=== PATIENT | female | born 2000 | race Caucasian/White ===

== ENCOUNTER 2021-09-04 11:49 | Inpatient (IN) | payer BC ==
--- NOTE | 2021-09-04 12:54 | PCM.LDHP ---
L&D History of Present Illness - General Date of Service: 09/04/21 Admit Problem/Dx: Patient Status Order with Admit Dx/Problem 09/04/21 12:07 Patient Status [ADT] Routine Admission Diagnosis/Problem Admission Diagnosis/Problem Source of Information: Patient History Limitations: Reports: No Limitations - History of Present Illness Introduction:: 20 yo at 37+3 weeks gestation presented to L&D with SROM at about 1130 this am with clear fluid. She had been having contractions starting about 10:00 am that were mild but they are feeling stronger since AROM. Amnisure today is positive. GBS is negative. Blood type A positive. labs were negative RPR, neg HBsAg, Neg HIV and neg HCV. Good immunity to rubella. GC/Ct negative. She did Prequel that was negative for Trisomies and XX sex chromosomes. 1 hour glucola was abnormal but 3 hour test was wnl. She has had Influenza and Tdap vaccinations with this , but has declined COVID vaccine. NST on admission shows moderate variability and accelerations, no decelerations. Bedside ultrasound by Dr. Moore, OB on car supervisor, confirmed baby is still in Breech presentation with head to maternal right. There was discrepancy with her dates and 20 week ultrasound off by about 2 weeks from LMP. She did see Dr. Aj who did detailed ultrasound and felt that baby was consistent with the 20 week ultrasound and set EDC at 09/23/21. She was supposed to have growth ultrasounds but did not come for 2 months and then I saw her for the first time on 08/26/21 and BPP at that time was 8/8 but breech presentation, RAMESH 9.4 cm, EFW 5lb 4oz, 9%. Repeat BPP on 09/02/21 was 8/8, breech, RAMESH 9.3 and EFW 5 lb 7oz (6%). We were planning on scheduled primary on 09/20/[address] Paniagua as primary surgeon due to breech and not wanting to attempt ECV. On exam today, cervix 1 cm dilated, 90% effaced, station -1. contractions about every 4 minutes and are mild. Clear fluid draining. - Related Data Allergies/Adverse Reactions: Allergies Allergy/AdvReac Type Severity Reaction Status Date / Time No Known Allergies Allergy Verified 07/18/21 11:59 Home Medications: Home Meds No122/Iron/Folic Acid [ Multi Tablet] 1 each PO DAILY 07/18/21 [History] Past Medical History Psychiatric History: Reports: Anxiety, Depression H&P Review of Systems - Review of Systems: Review Of Systems: See Below General: Reports: No Symptoms HEENT: Reports: No Symptoms Pulmonary: Reports: No Symptoms Cardiovascular: Reports: No Symptoms Gastrointestinal: Reports: No Symptoms Genitourinary: Reports: No Symptoms Musculoskeletal: Reports: No Symptoms Skin: Reports: No Symptoms Psychiatric: Reports: No Symptoms Neurological: Reports: No Symptoms Hematologic/Lymphatic: Reports: No Symptoms Immunologic: Reports: No Symptoms L&D Exam - Exam Exam: See Below - Vital Signs Weight: 58.967 kg - OB Specific Contraction Duration (sec): 60 secs Contraction Frequency (min): 4 min Contraction Intensity: Mild Movement: Active Heart Tones: Present Heart Tones per Min: 130 Heart Rate (FHR) Variability: Moderate (6-25 bpm) Presentation: Breech Estimated Weight: 5 lb 5 oz - Sofia Score Sofia Score Cervix Position: Anterior Sofia Score Consistency: Soft Sofia Score Effacement: >80% Sofia Score Dilation: 1-2 cm Sofia Score Infant's Station: -1 ,0 Sofia Score Total: 10 - Exam General: Alert, Oriented, Mild Distress HEENT: Pupils Equal Neck: Supple Lungs: Normal Respiratory Effort Cardiovascular: Regular Rate, Regular Rhythm GI/Abdominal Exam: Normal Bowel Sounds Rectal Exam: Deferred Genitourinary: Normal external exam, Enlarged uterus, Other (Leaking clear fluid) Back Exam: Normal Inspection Extremities: No Pedal Edema Skin: Warm, Dry, Intact Psychiatric: Alert, Normal Affect, Normal Mood - Patient Data Lab Results Last 24 hrs: Laboratory Results - last 24 hr 09/04/21 Range/Units 12:00 Membrane Rupture Positive H - Problem List (1) 37 weeks gestation of SNOMED Code(s): 22896915 ICD Code: Z3A.37 - 37 WEEKS GESTATION OF Status: Acute Current Visit: Yes (2) SROM (spontaneous rupture of membranes) SNOMED Code(s): 282420117 ICD Code: [id number] - Status: Acute Current Visit: Yes (3) Breech presentation of fetus SNOMED Code(s): 9804305 ICD Code: O32.1XX0 - MATERNAL CARE FOR BREECH PRESENTATION, UNSP Status: Acute Current Visit: Yes (4) Small for gestational age fetus SNOMED Code(s): 375852902 ICD Code: [id number] - Status: Acute Current Visit: Yes Problem List Initiated/Reviewed/Updated: Yes Orders Last 24hrs: Active Orders 24 hr Category Date Time Status Patient Status [ADT] Routine ADT 09/04/21 12:07 Active Non Stress Test [RC] PER UNIT ROUTINE Care 09/04/21 12:07 Active Vital Signs [RC] PER UNIT ROUTINE Care 09/04/21 12:07 Active Nothing Per Oral Diet [DIET] Diet 09/04/21 Lunch Active CORONAVIRUS COVID-19 [place] [MOLEC] Stat Lab 09/04/21 12:46 Ordered Resuscitation Status Routine Resus Stat 09/04/21 12:06 Ordered Assessment/Plan Comment:: 20 yo at 37+3 weeks with SROM and breech presentation confirmed with bedside ultrasound today. She is GBS negative, but SGA baby and some discrepancy of dates and ultrasound in early . She did see Dr. Aj who determined EDC 09/23/21 based on her ultrasound. NST is reactive. Amnisure positive. She is having contractions that are still mild. Cervix 1 cm dilated, 80% effaced. Plan: Urgent Primary section today due to breech presentation. Dr. Moore is on car supervisor so will be primary surgeon and I will be assisting. Will have Dr. Avery present for pediatrics during the surgery and then I will assume care of baby for the remainder of the hospital stay.
[2021-09-04] MEDS ORDERED: Citric Acid/Sodium Citrate Solution 30 ML Cup PO ONE (12:57)
[2021-09-04] MEDS ORDERED: ceFAZolin 2 GM in Premix Bag 1 BAG IV ONE (12:57)
[2021-09-04] MEDS ORDERED: Metoclopramide 10 MG/2 ML SDV IVPUSH ONE (12:57)
[2021-09-04] MEDS ORDERED: Azithromycin 500 MG in Sodium Chloride 0.9% 250 ML IV ONE (12:59)
[2021-09-04] MEDS ORDERED: Lactated Ringers 1,000 ML IV SCH (13:00)
--- NOTE | 2021-09-04 13:19 | PCM.OPNOTE ---
- General Post-Op/Procedure Note Date of Surgery/Procedure: 09/04/21 Operative Procedure(s): Primary low transverse Findings: Normal appearance of the uterus and ovaries. Baby girl in breech presentation. Weight of 6 lbs 0 oz, APGARS of 9 & 9 Pre Op Diagnosis: 37 3/7 wks. Breech presentation. SROM Post-Op Diagnosis: Same Anesthesia Technique: Spinal Primary Surgeon: Kelly Moore Secondary Surgeon: Nila Whitten Anesthesia Provider: Ever Nicholson Reason Expanded Duty Dental Assistant Was Necessary: Speed / safety of procedure Pathology: Cord blood collected. Placenta discarded Fluid Replacement, Intraop: 1,900 Output, Urine Amount: 100 EBL in mLs: 400 Complications: None Condition: Good Free Text/Narrative:: The risks, benefits, indications, potential complications, and alternatives were explained to the patient and informed consent obtained. After induction of anesthesia, the patient was placed in a supine position and then draped and prepped in the usual sterile manner. A Pfannenstiel incision was made and carried down through the subcutaneous tissue to the fascia. Fascial incision was made and extended transversely. The fascia was from the underlying rectus tissue superiorly and inferiorly. The peritoneum was identified and entered. Peritoneal incision was extended longitudinally. The utero-vesical peritoneal reflection was incised transversely and the bladder flap was bluntly freed from the lower uterine segment. A low transverse uterine incision was made sharply with a scalpel and extended bluntly in a cephalocaudad direction. A baby girl was delivered from a breech presentation with APGARS as above. After the umbilical cord was clamped and cut cord blood was obtained for evaluation. The placenta was removed intact and appeared normal. The uterus was exteriorized and cleared of clots. The uterine outline, tubes and ovaries appeared normal. The uterine incision was closed with running locked sutures of 0 Monocryl. Hemostasis was obtained with a second imbricating layer of 0 Monocryl. The uterus was then placed back into the abdomen. The infracolic gutters were cleared of blood clots. The fascia was then reapproximated with running sutures of 0 Monocryl. The subcutaneous tissue was irrigated with sterile warm normal saline, hemostasis obtained with cautery. This layer was closed with a running 0 Monocryl. The skin was reapproximated with running subcuticular 4-0 Monocryl sutures. Incision was sealed with Dermabond. Instrument, sponge, and needle counts were correct prior the abdominal closure and at the conclusion of the case.
[2021-09-04] MEDS ORDERED: Ondansetron 4 MG/2 ML SDV ONE (13:42)
[2021-09-04] MEDS ORDERED: fentaNYL 100 MCG/2 ML SDV ONE (13:42)
[2021-09-04] MEDS ORDERED: Morphine PF 10 MG/10 ML SDV ONE (13:42)
[2021-09-04] MEDS ORDERED: Ketorolac 30 MG/ML SDV ONE (13:42)
[2021-09-04] MEDS ORDERED: Oxytocin 10 Units/1 ML SDV ONE ×2 (13:42→14:34)
[2021-09-04] MEDS ORDERED: ceFAZolin 1 GM Vial ONE (13:45)
[2021-09-04] MEDS ORDERED: Lactated Ringers 1,000 ML ONE ×2 (13:58→14:34)
--- NOTE | 2021-09-04 14:23 | PCM.PREANE ---
Preanesthetic Assessment - Procedure Proposed Procedure: primary Cesrean section - Anesthesia/Transfusion/Family Hx Anesthesia History: No Prior Anesthesia Transfusion History: No Prior Transfusion(s) - Review of Systems General: No Symptoms Pulmonary: No Symptoms Cardiovascular: No Symptoms Gastrointestinal: No Symptoms Neurological: No Symptoms, Other (Scoliosis) Other: Reports: None - Physical Assessment NPO Status Date: 09/04/21 NPO Status Time: 10:00 Vital Signs: Last Vital Signs Temp 98.4 F 09/04/21 11:50 Pulse 72 09/04/21 11:50 Resp 14 09/04/21 11:50 BP 113/92 H 09/04/21 11:50 Pulse Ox 100 09/04/21 11:50 Height: 1.57 m Weight: 58.967 kg ASA Class: 2 Mental Status: Alert & Oriented x3 Airway Class: Mallampati = 1 Dentition: Reports: Normal Dentition Thyro-Mental Finger Breadths: 3 Mouth Opening Finger Breadths: 3 ROM/Head Extension: Full Lungs: Clear to Auscultation, Normal Respiratory Effort Cardiovascular: Regular Rate, Regular Rhythm - Lab Values: Laboratory Last Values WBC 6.33 K/mm3 (3.98-10.04) 09/04/21 13:08 RBC 4.62 M/mm3 (3.98-5.22) 09/04/21 13:08 Hgb 11.5 gm/dl (11.2-15.7) 09/04/21 13:08 Hct 36.5 % (34.1-44.9) 09/04/21 13:08 MCV 79.0 fl (79.4-94.8) L D 09/04/21 13:08 MCH 24.9 pg (25.6-32.2) L 09/04/21 13:08 MCHC 31.5 g/dl (32.2-35.5) L 09/04/21 13:08 RDW Std Deviation 41.2 fL (36.4-46.3) 09/04/21 13:08 Plt Count 273 K/mm3 (182-369) 09/04/21 13:08 MPV 11.6 fl (9.4-12.3) 09/04/21 13:08 Membrane Rupture Positive H 09/04/21 12:00 SARS-CoV-2 RNA ([facility]) Negative (NEGATIVE) 09/04/21 12:14 Blood Type A POSITIVE 09/04/21 13:08 Gel Antibody Screen Negative 09/04/21 13:08 - Allergies Allergies/Adverse Reactions: Allergies Allergy/AdvReac Type Severity Reaction Status Date / Time No Known Allergies Allergy Verified 07/18/21 11:59 - Acknowledgements Anesthesia Type Planned: Spinal Pt an Appropriate Candidate for the Planned Anesthesia: Yes Alternatives and Risks of Anesthesia Discussed w Pt/Guardian: Yes Pt/Guardian Understands and Agrees with Anesthesia Plan: Yes PreAnesthesia Questionnaire - Past Health History Medical/Surgical History: Denies Medical/Surgical History VERIFIER History: Reports: Psychiatric History: Reports: Anxiety, Depression - SUBSTANCE USE Tobacco Use Within Last Twelve Months: Vaping Second Hand Smoke Exposure: No Recreational Drug Use History: No - HOME MEDS Home Medications: Home Meds No122/Iron/Folic Acid [ Multi Tablet] 1 each PO DAILY 07/18/21 [History] - CURRENT (IN HOUSE) MEDS Current Meds: Current Medications Lactated Ringer's (Ringers, Lactated) 1,000 mls @ 125 mls/hr IV ASDIRECTED [place] Last Admin: 09/04/21 13:06 Dose: 500 mls/hr Documented by: Sodium Chloride (Sodium Chloride 0.9% 10 Ml Syringe) 10 ml FLUSH 0900,2100 [facility] Discontinued Medications Cefazolin Sodium (Cefazolin 1 Gm Vial) Confirm Administered Dose 2 gm .ROUTE .STK-MED ONE Stop: 09/04/21 13:46 Citric Acid/Sodium Citrate (Citric Acid/Sodium Citrate Solution 30 Ml Cup) 30 ml PO ONETIME ONE Stop: 09/04/21 12:58 Fentanyl (Fentanyl 100 Mcg/2 Ml Sdv) Confirm Administered Dose 100 mcg .ROUTE .STK-MED ONE Stop: 09/04/21 13:43 Cefazolin Sodium/Dextrose 2 gm (/ Premix) 50 mls @ 100 mls/hr IV ONETIME ONE Stop: 09/04/21 13:26 Azithromycin 500 mg/ Sodium (Chloride) 250 mls @ 250 mls/hr IV ONETIME ONE Stop: 09/04/21 13:58 Last Admin: 09/04/21 13:08 Dose: 250 mls/hr Documented by: Lactated Ringer's (Ringers, Lactated) Confirm Administered Dose 1,000 mls @ as directed .ROUTE .STK-MED ONE Stop: 09/04/21 13:59 Ketorolac Tromethamine (Ketorolac 30 Mg/Ml Sdv) Confirm Administered Dose 30 mg .ROUTE .STK-MED ONE Stop: 09/04/21 13:43 Metoclopramide HCl (Metoclopramide 10 Mg/2 Ml Sdv) 10 mg IVPUSH ONETIME ONE Stop: 09/04/21 12:58 Last Admin: 09/04/21 13:08 Dose: 10 mg Documented by: Morphine Sulfate (Morphine Pf 10 Mg/10 Ml Sdv) Confirm Administered Dose 10 mg .ROUTE .STK-MED ONE Stop: 09/04/21 13:43 Ondansetron HCl (Ondansetron 4 Mg/2 Ml Sdv) Confirm Administered Dose 4 mg . ROUTE .STK-MED ONE Stop: 09/04/21 13:43 Oxytocin (Oxytocin 10 Units/1 Ml Sdv) Confirm Administered Dose 10 unit .ROUTE .STK-MED ONE Stop: 09/04/21 13:43
[2021-09-04] MEDS ORDERED: diphenhydrAMINE 50 MG/ML SDV IVPUSH PRN ×2 (14:32→16:26)
[2021-09-04] MEDS ORDERED: fentaNYL 100 MCG/2 ML SDV IVPUSH PRN (14:32)
[2021-09-04] MEDS ORDERED: Ondansetron 4 MG/2 ML SDV IVPUSH PRN (14:32)
--- NOTE | 2021-09-04 14:59 | PCM.POSTAN ---
POST ANESTHESIA ASSESSMENT - MENTAL STATUS Mental Status: Alert, Oriented - VITAL SIGNS Vital Signs: Last Vital Signs Temp 97.3 F 09/04/21 14:45 Pulse 72 09/04/21 11:50 Resp 18 09/04/21 14:45 BP 116/73 09/04/21 14:45 Pulse Ox 97 09/04/21 14:45 - RESPIRATORY Respiratory Status: Respiratory Rate WNL, Airway Patent, O2 Saturation Stable - CARDIOVASCULAR CV Status: Pulse Rate WNL, Blood Pressure Stable - GASTROINTESTINAL GI Status: No Symptoms - PAIN Pain Score: 0 (post SAB) - POST OP HYDRATION Hydration Status: Adequate & Stable
[2021-09-04] MEDS ORDERED: Ondansetron 4 MG/2 ML SDV IV PRN (16:26)
[2021-09-04] MEDS ORDERED: Dextrose 5%-Lactated Ringers 1,000 ML IV SCH (16:26)
[2021-09-04] MEDS ORDERED: Acetaminophen/oxyCODONE 325-5 MG Tab PO PRN (16:26)
[2021-09-04] MEDS ORDERED: Naloxone 0.4 MG/ML SDV IVPUSH PRN (16:26)
[2021-09-04] MEDS: Ketorolac 30 MG/ML SDV IVPUSH SCH (19:48)
[2021-09-04] MEDS: Docusate Sodium 100 MG Cap PO PRN (19:49)
[2021-09-04] MEDS ORDERED: Sodium Chloride 0.9% 10 ML Syringe FLUSH SCH (21:00)
[2021-09-05] MEDS: Ketorolac 30 MG/ML SDV IVPUSH SCH ×2 (01:54→11:41)
--- NOTE | 2021-09-05 07:31 | PCM.PNPP ---
- General Info Date of Service: 09/05/21 Functional Status: Reports: Pain Controlled, Tolerating Diet, Ambulating - Review of Systems General: Reports: No Symptoms Pulmonary: Reports: No Symptoms Cardiovascular: Reports: No Symptoms Gastrointestinal: Reports: No Symptoms Genitourinary: Reports: No Symptoms Musculoskeletal: Reports: No Symptoms Neurological: Reports: No Symptoms - General Info Date of Service: 09/05/21 - Patient Data Vital Signs - Most Recent: Last Vital Signs Temp 36.8 C 09/05/21 04:17 Pulse 59 L 09/05/21 04:17 Resp 14 09/05/21 07:00 BP 108/73 09/05/21 04:17 Pulse Ox 98 09/05/21 07:00 Weight - Most Recent: 58.967 kg I&O - Last 24 Hours: Intake & Output 09/04/21 09/05/21 09/05/21 22:59 06:59 14:59 Intake Total 500 Output Total 675 350 Balance -175 -350 Lab Results - Last 24 Hours: Laboratory Results - last 24 hr 09/04/21 09/04/21 09/04/21 Range/Units 12:00 12:14 13:08 WBC (3.98-10.04) K/mm3 RBC (3.98-5.22) M/mm3 Hgb (11.2-15.7) gm/dl Hct (34.1-44.9) % MCV (79.4-94.8) fl MCH (25.6-32.2) pg MCHC (32.2-35.5) g/dl RDW Std Deviation (36.4-46.3) fL Plt Count (182-369) K/mm3 MPV (9.4-12.3) fl Membrane Rupture Positive H RPR Non-reactive (NONREACTIVE) SARS-CoV-2 RNA ([facility]) Negative (NEGATIVE) Blood Type Gel Antibody Screen 09/04/21 09/04/21 09/05/21 Range/Units 13:08 13:08 05:51 WBC 6.33 9.47 (3.98-10.04) K/mm3 RBC 4.62 3.66 L (3.98-5.22) M/mm3 Hgb 11.5 9.1 L D (11.2-15.7) gm/dl Hct 36.5 29.3 L (34.1-44.9) % MCV 79.0 L D 80.1 (79.4-94.8) fl MCH 24.9 L 24.9 L (25.6-32.2) pg MCHC 31.5 L 31.1 L (32.2-35.5) g/dl RDW Std Deviation 41.2 41.2 (36.4-46.3) fL Plt Count 273 197 D (182-369) K/mm3 MPV 11.6 11.3 (9.4-12.3) fl Membrane Rupture RPR (NONREACTIVE) SARS-CoV-2 RNA ([facility]) (NEGATIVE) Blood Type A POSITIVE Gel Antibody Screen Negative Med Orders - Current: Current Medications Diphenhydramine HCl (Diphenhydramine 50 Mg/Ml Sdv) 25 mg IVPUSH Q6H PRN PRN Reason: Itching or Nausea Docusate Sodium (Docusate Sodium 100 Mg Cap) 100 mg PO Q12H PRN PRN Reason: Constipation Last Admin: 09/04/21 19:49 Dose: 100 mg Documented by: Fentanyl (Fentanyl 100 Mcg/2 Ml Sdv) 50 mcg IVPUSH Q5M PRN PRN Reason: Pain Ibuprofen (Ibuprofen 600 Mg Tab) 600 mg PO Q6H PRN PRN Reason: mild pain or fever Ketorolac Tromethamine (Ketorolac 30 Mg/Ml Sdv) 30 mg IVPUSH Q6H [place] Stop: 09/05/21 08:01 Last Admin: 09/05/21 01:54 Dose: 30 mg Documented by: Naloxone HCl (Naloxone 0.4 Mg/Ml Sdv) 0.1 mg IVPUSH SEECOMMENT PRN PRN Reason: Respiratory Depression Ondansetron HCl (Ondansetron 4 Mg/2 Ml Sdv) 4 mg IVPUSH ONETIME PRN PRN Reason: Nausea/Vomiting Ondansetron HCl (Ondansetron 4 Mg/2 Ml Sdv) 4 mg IV Q8H PRN PRN Reason: Nausea/Vomiting Oxycodone/Acetaminophen (Acetaminophen/Oxycodone 325-5 Mg Tab) 1 tab PO Q4H PRN PRN Reason: Pain (moderate 4-6) Oxycodone/Acetaminophen (Acetaminophen/Oxycodone 325-5 Mg Tab) 2 tab PO Q4H PRN PRN Reason: Pain (severe 7-10) Discontinued Medications Cefazolin Sodium (Cefazolin 1 Gm Vial) Confirm Administered Dose 2 gm .ROUTE .STK-MED ONE Stop: 09/04/21 13:46 Citric Acid/Sodium Citrate (Citric Acid/Sodium Citrate Solution 30 Ml Cup) 30 ml PO ONETIME ONE Stop: 09/04/21 12:58 Diphenhydramine HCl (Diphenhydramine 50 Mg/Ml Sdv) 25 mg IVPUSH Q6H PRN PRN Reason: Pruritis Fentanyl (Fentanyl 100 Mcg/2 Ml Sdv) Confirm Administered Dose 100 mcg .ROUTE .STK-MED ONE Stop: 09/04/21 13:43 Lactated Ringer's (Ringers, Lactated) 1,000 mls @ 125 mls/hr IV ASDIRECTED [facility] Last Admin: 09/04/21 13:06 Dose: 500 mls/hr Documented by: Cefazolin Sodium/Dextrose 2 gm (/ Premix) 50 mls @ 100 mls/hr IV ONETIME ONE Stop: 09/04/21 13:26 Azithromycin 500 mg/ Sodium (Chloride) 250 mls @ 250 mls/hr IV ONETIME ONE Stop: 09/04/21 13:58 Last Admin: 09/04/21 13:08 Dose: 250 mls/hr Documented by: Lactated Ringer's (Ringers, Lactated) Confirm Administered Dose 1,000 mls @ as directed .ROUTE .STK-MED ONE Stop: 09/04/21 13:59 Lactated Ringer's (Ringers, Lactated) Confirm Administered Dose 1,000 mls @ as directed .ROUTE .STK-MED ONE Stop: 09/04/21 14:35 Dextrose/Lactated Ringer's (Dextrose 5%-Lactated Ringers) 1,000 mls @ 125 mls/hr IV ASDIRECTED [facility] Stop: 09/05/21 00:25 Last Admin: 09/04/21 19:59 Dose: 125 mls/hr Documented by: Ketorolac Tromethamine (Ketorolac 30 Mg/Ml Sdv) Confirm Administered Dose 30 mg .ROUTE .STK-MED ONE Stop: 09/04/21 13:43 Metoclopramide HCl (Metoclopramide 10 Mg/2 Ml Sdv) 10 mg IVPUSH ONETIME ONE Stop: 09/04/21 12:58 Last Admin: 09/04/21 13:08 Dose: 10 mg Documented by: Morphine Sulfate (Morphine Pf 10 Mg/10 Ml Sdv) Confirm Administered Dose 10 mg .ROUTE .STK-MED ONE Stop: 09/04/21 13:43 Ondansetron HCl (Ondansetron 4 Mg/2 Ml Sdv) Confirm Administered Dose 4 mg .ROUTE .STK-MED ONE Stop: 09/04/21 13:43 Oxytocin (Oxytocin 10 Units/1 Ml Sdv) Confirm Administered Dose 10 unit .ROUTE .STK-MED ONE Stop: 09/04/21 13:43 Oxytocin (Oxytocin 10 Units/1 Ml Sdv) Confirm Administered Dose 10 unit .ROUTE .STK-MED ONE Stop: 09/04/21 14:35 Sodium Chloride (Sodium Chloride 0.9% 10 Ml Syringe) 10 ml FLUSH 0900,2100 [place] - Infant Interaction Disposition, : in Room with Family Interaction: Holding Infant Infant Feeding: Bottle Fed Support Person: Significant Other - Recovery Exam Fundal Tone: Firm Fundal Level: 1 Fingerbreadths Below Umbilicus Fundal Placement: Midline Lochia Amount: Scant, Small Lochia Color: Rubra/Red Perineum Description: Intact, Minimal Bruising/Swelling Bladder Status: Indwelling Catheter in Place Urinary Elimination: Indwelling Catheter - Exam General: Alert, Oriented, Cooperative Lungs: Clear to Auscultation, Normal Respiratory Effort Cardiovascular: Regular Rate, Regular Rhythm GI/Abdominal Exam: Soft, Non-Tender Extremities: Normal Inspection Skin: Warm, Dry, Intact Wound/Incisions: Healing Well, No Drainage - Problem List & Annotations (1) 37 weeks gestation of SNOMED Code(s): 47363772 Code(s): Z3A.37 - 37 WEEKS GESTATION OF Status: Acute Current Visit: Yes (2) Breech presentation of fetus SNOMED Code(s): 0897757 Code(s): O32.1XX0 - MATERNAL CARE FOR BREECH PRESENTATION, UNSP Status: Acute Current Visit: Yes (3) SROM (spontaneous rupture of membranes) SNOMED Code(s): 176441887 Code(s): PKI0839 - Status: Acute Current Visit: Yes (4) delivery delivered SNOMED Code(s): 784760940 Code(s): O82 - ENCOUNTER FOR DELIVERY WITHOUT INDICATION Status: Acute Current Visit: Yes - Problem List Review Problem List Initiated/Reviewed/Updated: Yes - My Orders Last 24 Hours: My Active Orders 09/04/21 16:26 Acetaminophen/oxyCODONE [Percocet 325-5 MG] 1 tab PO Q4H PRN Acetaminophen/oxyCODONE [Percocet 325-5 MG] 2 tab PO Q4H PRN Docusate Sodium [Colace] 100 mg PO Q12H PRN Naloxone [Narcan] 0.1 mg IVPUSH SEECOMMENT PRN Ondansetron [Zofran] 4 mg IV Q8H PRN diphenhydrAMINE [Benadryl] 25 mg IVPUSH Q6H PRN 09/04/21 16:26 Activity as Tolerated [RC] .Routine Antiembolic Devices [RC] PER UNIT ROUTINE Communication Order [RC] PER UNIT ROUTINE Intake and Output [RC] Q4H May Shower [RC] PER UNIT ROUTINE Notify Provider Intake and Out [RC] ASDIRECTED RT Incentive Spirometry [RC] Q2HWA Assess Lochia [WOMSER] Per Unit Routine Assess Uterine Involution [WOMSER] Per Unit Routine Breast Pump [WOMSER] Per Unit Routine Peripheral IV Discontinue [OM.PC] Routine Sequential Compression Device [OM.PC] Per Unit Routine 09/04/21 Dinner Regular Diet [DIET] 09/04/21 20:00 Ketorolac [Toradol] 30 mg IVPUSH Q6H 09/05/21 14:00 Ibuprofen [Motrin] 600 mg PO Q6H PRN 09/05/21 14:46 Urinary Catheter Removal [RC] Per Unit Routine - Assessment Assessment:: POD#1 - Plan Plan:: Routine cares Bottle feeding Discharge home in 1-2 days
--- NOTE | 2021-09-05 14:15 | PCM48HPAN ---
Post Anesthesia Note - EVALUATION WITHIN 48HRS OF ANESTHETIC Vital Signs in Normal Range: Yes Patient Participated in Evaluation: Yes Respiratory Function Stable: Yes Airway Patent: Yes Cardiovascular Function Stable: Yes Hydration Status Stable: Yes Pain Control Satisfactory: Yes Nausea and Vomiting Control Satisfactory: Yes Mental Status Recovered: Yes Vital Signs: Last Vital Signs Temp 36.6 C 09/05/21 11:31 Pulse 62 09/05/21 11:31 Resp 15 09/05/21 11:31 BP 105/83 09/05/21 11:31 Pulse Ox 98 09/05/21 11:31
[2021-09-05] MEDS: Ibuprofen 600 MG Tab PO PRN (18:53)
[2021-09-05] MEDS: Acetaminophen/oxyCODONE 325-5 MG Tab PO PRN (20:29)
[2021-09-06] MEDS: Ibuprofen 600 MG Tab PO PRN ×2 (03:36→14:48)
[2021-09-06] MEDS: Acetaminophen/oxyCODONE 325-5 MG Tab PO PRN ×3 (06:09→17:23)
[2021-09-06] MEDS: Docusate Sodium 100 MG Cap PO PRN (06:09)
--- NOTE | 2021-09-06 07:13 | PCM.PNPP ---
- General Info Date of Service: 09/06/21 Functional Status: Reports: Pain Controlled, Tolerating Diet, Ambulating, Urinating - Review of Systems General: Reports: No Symptoms Pulmonary: Reports: No Symptoms Cardiovascular: Reports: No Symptoms Gastrointestinal: Reports: No Symptoms Genitourinary: Reports: No Symptoms Musculoskeletal: Reports: No Symptoms - General Info Date of Service: 09/06/21 - Patient Data Vital Signs - Most Recent: Last Vital Signs Temp 36.2 C 09/06/21 03:22 Pulse 53 L 09/06/21 03:22 Resp 12 09/06/21 03:22 BP 113/81 09/06/21 03:22 Pulse Ox 97 09/06/21 03:22 Weight - Most Recent: 58.967 kg I&O - Last 24 Hours: Intake & Output 09/05/21 09/06/21 09/06/21 22:59 06:59 14:59 Output Total 750 Balance -750 Med Orders - Current: Current Medications Diphenhydramine HCl (Diphenhydramine 50 Mg/Ml Sdv) 25 mg IVPUSH Q6H PRN PRN Reason: Itching or Nausea Docusate Sodium (Docusate Sodium 100 Mg Cap) 100 mg PO Q12H PRN PRN Reason: Constipation Last Admin: 09/06/21 06:09 Dose: 100 mg Documented by: Fentanyl (Fentanyl 100 Mcg/2 Ml Sdv) 50 mcg IVPUSH Q5M PRN PRN Reason: Pain Ibuprofen (Ibuprofen 600 Mg Tab) 600 mg PO Q6H PRN PRN Reason: mild pain or fever Last Admin: 09/06/21 03:36 Dose: 600 mg Documented by: Naloxone HCl (Naloxone 0.4 Mg/Ml Sdv) 0.1 mg IVPUSH SEECOMMENT PRN PRN Reason: Respiratory Depression Ondansetron HCl (Ondansetron 4 Mg/2 Ml Sdv) 4 mg IVPUSH ONETIME PRN PRN Reason: Nausea/Vomiting Ondansetron HCl (Ondansetron 4 Mg/2 Ml Sdv) 4 mg IV Q8H PRN PRN Reason: Nausea/Vomiting Oxycodone/Acetaminophen (Acetaminophen/Oxycodone 325-5 Mg Tab) 1 tab PO Q4H PRN PRN Reason: Pain (moderate 4-6) Last Admin: 09/06/21 06:09 Dose: 1 tab Documented by: Oxycodone/Acetaminophen (Acetaminophen/Oxycodone 325-5 Mg Tab) 2 tab PO Q4H PRN PRN Reason: Pain (severe 7-10) Discontinued Medications Cefazolin Sodium (Cefazolin 1 Gm Vial) Confirm Administered Dose 2 gm .ROUTE .STK-MED ONE Stop: 09/04/21 13:46 Citric Acid/Sodium Citrate (Citric Acid/Sodium Citrate Solution 30 Ml Cup) 30 ml PO ONETIME ONE Stop: 09/04/21 12:58 Diphenhydramine HCl (Diphenhydramine 50 Mg/Ml Sdv) 25 mg IVPUSH Q6H PRN PRN Reason: Pruritis Fentanyl (Fentanyl 100 Mcg/2 Ml Sdv) Confirm Administered Dose 100 mcg .ROUTE .STK-MED ONE Stop: 09/04/21 13:43 Lactated Ringer's (Ringers, Lactated) 1,000 mls @ 125 mls/hr IV ASDIRECTED [facility] Last Admin: 09/04/21 13:06 Dose: 500 mls/hr Documented by: Cefazolin Sodium/Dextrose 2 gm (/ Premix) 50 mls @ 100 mls/hr IV ONETIME ONE Stop: 09/04/21 13:26 Azithromycin 500 mg/ Sodium (Chloride) 250 mls @ 250 mls/hr IV ONETIME ONE Stop: 09/04/21 13:58 Last Admin: 09/04/21 13:08 Dose: 250 mls/hr Documented by: Lactated Ringer's (Ringers, Lactated) Confirm Administered Dose 1,000 mls @ as directed .ROUTE .STK-MED ONE Stop: 09/04/21 13:59 Lactated Ringer's (Ringers, Lactated) Confirm Administered Dose 1,000 mls @ as directed .ROUTE .STK-MED ONE Stop: 09/04/21 14:35 Dextrose/Lactated Ringer's (Dextrose 5%-Lactated Ringers) 1,000 mls @ 125 mls/hr IV ASDIRECTED [facility] Stop: 09/05/21 00:25 Last Admin: 09/04/21 19:59 Dose: 125 mls/hr Documented by: Ketorolac Tromethamine (Ketorolac 30 Mg/Ml Sdv) Confirm Administered Dose 30 mg .ROUTE .STK-MED ONE Stop: 09/04/21 13:43 Ketorolac Tromethamine (Ketorolac 30 Mg/Ml Sdv) 30 mg IVPUSH Q6H [place] Stop: 09/05/21 08:01 Last Admin: 09/05/21 11:41 Dose: 30 mg Documented by: Metoclopramide HCl (Metoclopramide 10 Mg/2 Ml Sdv) 10 mg IVPUSH ONETIME ONE Stop: 09/04/21 12:58 Last Admin: 09/04/21 13:08 Dose: 10 mg Documented by: Morphine Sulfate (Morphine Pf 10 Mg/10 Ml Sdv) Confirm Administered Dose 10 mg .ROUTE .STK-MED ONE Stop: 09/04/21 13:43 Ondansetron HCl (Ondansetron 4 Mg/2 Ml Sdv) Confirm Administered Dose 4 mg .ROUTE .STK-MED ONE Stop: 09/04/21 13:43 Oxytocin (Oxytocin 10 Units/1 Ml Sdv) Confirm Administered Dose 10 unit .ROUTE .STK-MED ONE Stop: 09/04/21 13:43 Oxytocin (Oxytocin 10 Units/1 Ml Sdv) Confirm Administered Dose 10 unit .ROUTE .STK-MED ONE Stop: 09/04/21 14:35 Sodium Chloride (Sodium Chloride 0.9% 10 Ml Syringe) 10 ml FLUSH 0900,2100 [place] - Interaction Disposition, : in Room with Family Infant Interaction: Holding Infant Infant Feeding: Bottle Fed Support Person: Significant Other - Recovery Exam Fundal Tone: Firm Fundal Level: 1 Fingerbreadths Below Umbilicus Fundal Placement: Midline Lochia Amount: Scant Lochia Color: Rubra/Red Perineum Description: Intact, Minimal Bruising/Swelling Bladder Status: Voiding Urinary Elimination: Voided - Exam General: Alert, Oriented, Cooperative Lungs: Clear to Auscultation, Normal Respiratory Effort Cardiovascular: Regular Rate, Regular Rhythm GI/Abdominal Exam: Soft, Non-Tender Extremities: Normal Inspection Skin: Warm, Dry, Intact Wound/Incisions: Healing Well, No Drainage - Problem List & Annotations (1) 37 weeks gestation of SNOMED Code(s): 91184247 Code(s): Z3A.37 - 37 WEEKS GESTATION OF Status: Acute (2) Breech presentation of fetus SNOMED Code(s): 1239120 Code(s): O32.1XX0 - MATERNAL CARE FOR BREECH PRESENTATION, UNSP Status: Acute Qualifiers: Fetus number: single or unspecified fetus Qualified Code(s): O32.1XX0 - Maternal care for breech presentation, not applicable or unspecified (3) SROM (spontaneous rupture of membranes) SNOMED Code(s): 515553557 Code(s): KBJ0962 - Status: Acute (4) delivery delivered SNOMED Code(s): 663675351 Code(s): O82 - ENCOUNTER FOR DELIVERY WITHOUT INDICATION Status: Acute - Problem List Review Problem List Initiated/Reviewed/Updated: Yes - My Orders Last 24 Hours: My Active Orders 09/05/21 14:00 Ibuprofen [Motrin] 600 mg PO Q6H PRN 09/06/21 07:12 Ready for Discharge [RC] PER UNIT ROUTINE - Assessment Assessment:: POD#2 - Plan Plan:: Routine cares Bottle feeding Discharge home today
--- NOTE | 2021-09-06 07:13 | PCM.DCSUM1 ---
Discharge Summary - Discharge Data Discharge Date: 09/06/21 Discharge Disposition: Home, Self-Care 01 Condition: Good - Referral to Home Health Primary Care Physician: Nila Whitten MD - Discharge Diagnosis/Problem(s) (1) 37 weeks gestation of SNOMED Code(s): 48515815 ICD Code: Z3A.37 - 37 WEEKS GESTATION OF Status: Acute (2) Breech presentation of fetus SNOMED Code(s): 5307098 ICD Code: O32.1XX0 - MATERNAL CARE FOR BREECH PRESENTATION, UNSP Status: Acute Qualifiers: Fetus number: single or unspecified fetus Qualified Code(s): O32.1XX0 - M aternal care for breech presentation, not applicable or unspecified (3) SROM (spontaneous rupture of membranes) SNOMED Code(s): 844443540 ICD Code: MAG5152 - Status: Acute (4) delivery delivered SNOMED Code(s): 973799311 ICD Code: O82 - ENCOUNTER FOR DELIVERY WITHOUT INDICATION Status: Acute - Patient Summary/Data Operative Procedure(s) Performed: Primary low transverse Complications: None Consults: None Recommended Follow-up Testing/Procedures: Follow up in 3 weeks for check Hospital Course: 20 y/o at 37 3/7 wks presented with SROM / breech presentation. Normally care with Dr. Whitten. Patient taken for unscheduled primary . This was uncomplicated. See delivery note . did well . Was discharged home on POD#2 - Patient Instructions Diet: Regular Diet as Tolerated Activity: No Lifting Over 10 Pounds Activity, Other: Pelvic res for 6 weeks Driving: Do Not Drive (While taking percocet ) Showering/Bathing: May Shower, No Tub Bathing/Swimming Wound/Incision Care: Keep Operative Site/Wound Site Clean and Dry Notify Provider of: Fever, Increased Pain, Swelling and Redness, Drainage, Nausea and/or Vomiting - Discharge Plan *PRESCRIPTION DRUG MONITORING PROGRAM REVIEWED*: No *COPY OF PRESCRIPTION DRUG MONITORING REPORT IN PATIENT [place]: No Prescriptions/Med Rec: Acetaminophen/oxyCODONE [Percocet 325-5 MG] 1 - 2 tab PO Q6H PRN #25 tablet PRN Reason: Pain (Severe 7-10) Home Medications: Home Meds No122/Iron/Folic Acid [ Multi Tablet] 1 each PO DAILY 07/18/21 [History] Acetaminophen/oxyCODONE [Percocet 325-5 MG] 1 - 2 tab PO Q6H PRN #25 tablet 09/06/21 [Rx] Docusate Sodium [Colace] 100 mg PO Q12H PRN cap 09/06/21 [Rx] Ibuprofen [Motrin] 600 mg PO Q6H PRN tablet 09/06/21 [Rx] Patient Handouts: Care After Vaginal Delivery Referrals: Nila Whitten MD [Primary Care Provider] - (3 weeks for check ) - Discharge Summary/Plan Comment DC Time >30 min.: No Total # of Minutes for Discharge Time: 15 - Patient Data Vitals - Most Recent: Last Vital Signs Temp 36.2 C 09/06/21 03:22 Pulse 53 L 09/06/21 03:22 Resp 12 09/06/21 03:22 BP 113/81 09/06/21 03:22 Pulse Ox 97 09/06/21 03:22 Weight - Most Recent: 58.967 kg I&O - Last 24 hours: Intake & Output 09/05/21 09/06/21 09/06/21 22:59 06:59 14:59 Output Total 750 Balance -750 Med Orders - Current: Current Medications Diphenhydramine HCl (Diphenhydramine 50 Mg/Ml Sdv) 25 mg IVPUSH Q6H PRN PRN Reason: Itching or Nausea Docusate Sodium (Docusate Sodium 100 Mg Cap) 100 mg PO Q12H PRN PRN Reason: Constipation Last Admin: 09/06/21 06:09 Dose: 100 mg Documented by: Fentanyl (Fentanyl 100 Mcg/2 Ml Sdv) 50 mcg IVPUSH Q5M PRN PRN Reason: Pain Ibuprofen (Ibuprofen 600 Mg Tab) 600 mg PO Q6H PRN PRN Reason: mild pain or fever Last Admin: 09/06/21 03:36 Dose: 600 mg Documented by: Naloxone HCl (Naloxone 0.4 Mg/Ml Sdv) 0.1 mg IVPUSH SEECOMMENT PRN PRN Reason: Respiratory Depression Ondansetron HCl (Ondansetron 4 Mg/2 Ml Sdv) 4 mg IVPUSH ONETIME PRN PRN Reason: Nausea/Vomiting Ondansetron HCl (Ondansetron 4 Mg/2 Ml Sdv) 4 mg IV Q8H PRN PRN Reason: Nausea/Vomiting Oxycodone/Acetaminophen (Acetaminophen/Oxycodone 325-5 Mg Tab) 1 tab PO Q4H PRN PRN Reason: Pain (moderate 4-6) Last Admin: 09/06/21 06:09 Dose: 1 tab Documented by: Oxycodone/Acetaminophen (Acetaminophen/Oxycodone 325-5 Mg Tab) 2 tab PO Q4H PRN PRN Reason: Pain (severe 7-10) Discontinued Medications Cefazolin Sodium (Cefazolin 1 Gm Vial) Confirm Administered Dose 2 gm .ROUTE .STK-MED ONE Stop: 09/04/21 13:46 Citric Acid/Sodium Citrate (Citric Acid/Sodium Citrate Solution 30 Ml Cup) 30 ml PO ONETIME ONE Stop: 09/04/21 12:58 Diphenhydramine HCl (Diphenhydramine 50 Mg/Ml Sdv) 25 mg IVPUSH Q6H PRN PRN Reason: Pruritis Fentanyl (Fentanyl 100 Mcg/2 Ml Sdv) Confirm Administered Dose 100 mcg .ROUTE .STK-MED ONE Stop: 09/04/21 13:43 Lactated Ringer's (Ringers, Lactated) 1,000 mls @ 125 mls/hr IV ASDIRECTED [facility] Last Admin: 09/04/21 13:06 Dose: 500 mls/hr Documented by: Cefazolin Sodium/Dextrose 2 gm (/ Premix) 50 mls @ 100 mls/hr IV ONETIME ONE Stop: 09/04/21 13:26 Azithromycin 500 mg/ Sodium (Chloride) 250 mls @ 250 mls/hr IV ONETIME ONE Stop: 09/04/21 13:58 Last Admin: 09/04/21 13:08 Dose: 250 mls/hr Documented by: Lactated Ringer's (Ringers, Lactated) Confirm Administered Dose 1,000 mls @ as directed .ROUTE .STK-MED ONE Stop: 09/04/21 13:59 Lactated Ringer's (Ringers, Lactated) Confirm Administered Dose 1,000 mls @ as directed .ROUTE .STK-MED ONE Stop: 09/04/21 14:35 Dextrose/Lactated Ringer's (Dextrose 5%-Lactated Ringers) 1,000 mls @ 125 mls/hr IV ASDIRECTED [facility] Stop: 09/05/21 00:25 Last Admin: 09/04/21 19:59 Dose: 125 mls/hr Documented by: Ketorolac Tromethamine (Ketorolac 30 Mg/Ml Sdv) Confirm Administered Dose 30 mg .ROUTE .STK-MED ONE Stop: 09/04/21 13:43 Ketorolac Tromethamine (Ketorolac 30 Mg/Ml Sdv) 30 mg IVPUSH Q6H [facility] Stop: 09/05/21 08:01 Last Admin: 09/05/21 11:41 Dose: 30 mg Documented by: Metoclopramide HCl (Metoclopramide 10 Mg/2 Ml Sdv) 10 mg IVPUSH ONETIME ONE Stop: 09/04/21 12:58 Last Admin: 09/04/21 13:08 Dose: 10 mg Documented by: Morphine Sulfate (Morphine Pf 10 Mg/10 Ml Sdv) Confirm Administered Dose 10 mg .ROUTE .STK-MED ONE Stop: 09/04/21 13:43 Ondansetron HCl (Ondansetron 4 Mg/2 Ml Sdv) Confirm Administered Dose 4 mg .ROUTE .STK-MED ONE Stop: 09/04/21 13:43 Oxytocin (Oxytocin 10 Units/1 Ml Sdv) Confirm Administered Dose 10 unit .ROUTE .STK-MED ONE Stop: 09/04/21 13:43 Oxytocin (Oxytocin 10 Units/1 Ml Sdv) Confirm Administered Dose 10 unit .ROUTE .STK-MED ONE Stop: 09/04/21 14:35 Sodium Chloride (Sodium Chloride 0.9% 10 Ml Syringe) 10 ml FLUSH 0900,2100 [facility]
== END 2021-09-06 17:30 | disposition home or self-care (01) | DRG 540 ==
LOC: JD.OBCHECK 11:49 → JD.OB 11:53 → JD.OBCHECK 14:11 → JD.OB 14:28
PROVIDERS: ADMIT Family Medicine; ATTEND Family Medicine
PROC: 10D00Z1 Extraction of Products of Conception, Low, Open Approach (ICD-10-PCS; principal; 2021-09-04)
DX: O32.1XX0 Maternal care for breech presentation, not applicable or unspecified (principal); Z3A.37 37 weeks gestation of pregnancy; Z37.0 Single live birth; Z20.822 Contact with and (suspected) exposure to COVID-19
CPT/HCPCS: 01961; 36415; 59025; 84112; 85027; 86592; 86850; 86900; 86901; 94762; A9270-GY; J0456; J0690; J1885; J2270; J2405; J2590; J2765; J3010; J7050; J7120; J7121; U0002

== ENCOUNTER 2022-04-11 19:03 | Emergency (ER) | payer BC ==
[2022-04-11] MEDS ORDERED: Sodium Chloride 0.9% 10 ML Syringe FLUSH PRN (20:26)
[2022-04-11] MEDS ORDERED: cefTRIAXone 2 GM in Sodium Chloride 0.9% 100 ML IV ONE (20:51)
== END 2022-04-11 22:24 | disposition home or self-care (01) ==
LOC: JD.ED 19:03
DX: N39.0 Urinary tract infection, site not specified (principal)
CPT/HCPCS: 36415; 80053; 81001; 81025; 85025; 87086; 96365; 99283; J0696; 99282